=== PATIENT | female | born 1935 | race Two or more races ===

== ENCOUNTER 2018-07-02 12:56 | Outpatient (CLI) | payer OTHER | END 2018-07-02 16:29 | disposition home or self-care (01) | LOC: MAMO-SONO 12:56 | DX: Z12.31 Encounter for screening mammogram for malignant neoplasm of breast (principal); Z87.898 Personal history of other specified conditions; Z12.39 Encounter for other screening for malignant neoplasm of breast; E55.9 Vitamin D deficiency, unspecified; N39.0 Urinary tract infection, site not specified; N77.1 Vaginitis, vulvitis and vulvovaginitis in diseases classified elsewhere; E78.49 Other hyperlipidemia; M81.0 Age-related osteoporosis without current pathological fracture; I11.9 Hypertensive heart disease without heart failure ==

== ENCOUNTER 2018-07-02 13:38 | Outpatient (CLI) | payer OTHER | END 2018-07-02 14:52 | disposition home or self-care (01) | LOC: NUCLEAR 13:38 | DX: M81.0 Age-related osteoporosis without current pathological fracture (principal); N39.0 Urinary tract infection, site not specified; E55.9 Vitamin D deficiency, unspecified; N77.1 Vaginitis, vulvitis and vulvovaginitis in diseases classified elsewhere; E03.8 Other specified hypothyroidism; I11.9 Hypertensive heart disease without heart failure; D64.89 Other specified anemias; Z12.39 Encounter for other screening for malignant neoplasm of breast; I10 Essential (primary) hypertension; E78.49 Other hyperlipidemia ==

== ENCOUNTER 2018-07-20 10:29 | Outpatient (CLI) | payer OTHER | END 2018-07-20 11:47 | disposition home or self-care (01) | LOC: RAD 10:29 | DX: M54.5 Low back pain (principal); N39.0 Urinary tract infection, site not specified; E55.9 Vitamin D deficiency, unspecified; N77.1 Vaginitis, vulvitis and vulvovaginitis in diseases classified elsewhere; E03.8 Other specified hypothyroidism; E78.49 Other hyperlipidemia; M81.0 Age-related osteoporosis without current pathological fracture; I11.9 Hypertensive heart disease without heart failure; M25.551 Pain in right hip; M25.552 Pain in left hip ==

== ENCOUNTER 2020-03-09 07:28 | Outpatient (CLI) | payer OTHER | END 2020-03-09 07:36 | disposition home or self-care (01) | LOC: TOM 07:28 | PROVIDERS: ATTEND General Practice | DX: R10.84 Generalized abdominal pain (principal); K40.90 Unilateral inguinal hernia, without obstruction or gangrene, not specified as recurrent; K59.09 Other constipation ==

== ENCOUNTER 2020-05-24 15:06 | Emergency (ER) | payer OTHER ==
[~2020-05-24] VITALS: Ht 154.9 cm; Wt 38.1 kg
[2020-05-24] MEDS ORDERED: SIMVASTATIN20 MG PO (16:03)
[2020-05-24] MEDS ORDERED: SYNTHROID50 MCG PO (16:03)
[2020-05-24] MEDS ORDERED: NORVASC5 MG PO (16:04)
[2020-05-24] MEDS ORDERED: ASA81 MG PO (16:04)
[2020-05-24] MEDS ORDERED: VITAMIN B-121000 MC2 SL (16:05)
[2020-05-24] MEDS ORDERED: PAXIL20 MG PO (16:05)
[2020-05-24] MEDS ORDERED: KEFLEX500 MG PO (16:05)
== END 2020-05-24 22:56 | disposition home or self-care (01) ==
LOC: ER 15:06 → CPU-OBS 15:31 → ER 15:31
DX: D64.89 Other specified anemias (principal); R63.0 Anorexia; E46 Unspecified protein-calorie malnutrition; F32.89 Other specified depressive episodes; Z03.818 Encounter for observation for suspected exposure to other biological agents ruled out